=== PATIENT | female | born 1945 | race Caucasian/White ===

== ENCOUNTER 2017-09-09 12:29 | Emergency (ER) | payer MEDICARE, BC, OTHER ==
[~2017-09-09] VITALS: Ht 154.9 cm; Wt 69.0 kg
[~2017-09-09 12:29] MED LIST: CYCL-36 PO; FEMHRT 1/5 PO; MEDR4PAK3 PO; OXYC-360 PO; SERT50 PO; TOPR50TA PO
[2017-09-09 12:35] VITALS: BP 177/75; PULSE 81; RESP 18; TEMP 98.4; O2SAT 97
[2017-09-09] MEDS ORDERED: METO1TAB42 PO (12:48)
[2017-09-09] MEDS ORDERED: CYCL10TA PO (12:48)
[2017-09-09] MEDS ORDERED: ZOLO50TA PO (12:48)
[2017-09-09 12:49] VITALS: BP 177/75; PULSE 81; RESP 18; TEMP 98.4; O2SAT 97
--- NOTE | 2017-09-09 13:20 | PD ---
HPI Chief Complaint: Nosebleed Time Seen by Provider: 12:57 Travel History International Travel<30 days: No Contact w/Intl Traveler<30days: No Traveled to known affect area: No History of Present Illness HPI This is a 72 year old female who presents to the emergency department with epistaxis that started 30 minutes ago, constant, moderate severity, continuing in the emergency department. She gets 2-3 nosebleeds per year and sees Dr. Boykin for them. Pt. did recently recover from a cold and she has been taking mucinex DM and another cold medication. PFSH Past Medical History Narrative Medical anxiety depression palpitations Hx Anticoagulant Therapy: No Anxiety: Yes Heart Rhythm Problems: Yes Cardiovascular Problems: Yes (HTN) Diminished Hearing: Yes (hearing aide) Tetanus Vaccination: Unknown ?: Not Menopausal: Yes Past Surgical History Tonsillectomy: Yes Other Surgery: Yes (DEVIATED SEPTUM SX) Social History Alcohol Use: No Tobacco Use: No Substance Use: No Allergies-Medications (Allergen,Severity, Reaction): Coded Allergies: Sulfa (Sulfonamide Antibiotics) (Unverified Allergy, Severe, SWOLLEN TONGUE, 09/09/17) Reported Meds & Prescriptions Reported Meds & Active Scripts Active Reported Flexeril (Cyclobenzaprine HCl) 10 Mg Tab 10 Mg PO BID Zoloft (Sertraline HCl) 50 Mg Tab 50 Mg PO DAILY Metoprolol Succinate ER 24 HR (Metoprolol Succinate) 25 Mg Tab 25 Mg PO DAILY Review of Systems Except as stated in HPI: all other systems reviewed are Neg Physical Exam Narrative GENERAL:Well appearing, no acute distress SKIN: Focused skin assessment warm and dry. HEAD: Atraumatic. Normocephalic. EYES: Pupils equal and round. No injection or drainage. ENT: NECK: Trachea midline. CARDIOVASCULAR: Regular rate and rhythm. No murmur appreciated. RESPIRATORY: Clear to auscultation. Breath sounds equal bilaterally. GASTROINTESTINAL: Abdomen soft, non-tender, nondistended. MUSCULOSKELETAL: No obvious deformities. NEUROLOGICAL: Awake and alert. No obvious cranial nerve deficits. Moving all extremities. PSYCHIATRIC: Appropriate mood and affect; insight and judgment normal. Data Data Last Documented VS Vital Signs Date Time Temp Pulse Resp B/P (MAP) Pulse Ox O2 Delivery O2 Flow Rate FiO2 09/09/17 14:09 09/09/17 12:49 98.4 81 18 97 09/09/17 12:35 Room Air Orders Orders Oxymetazoline 0.05% Javid Bartow (Afrin 0.0 (09/09/17 13:30) Ed Discharge Order (09/09/17 14:12) [facility] Medical Decision Making Medical Screen Exam Complete: Yes Emergency Medical Condition: Yes Interpretation(s) Afebrile, no tachycardia, hypertensive Differential Diagnosis Anterior epistaxis, posterior epistaxis, anemia Narrative Course This is a 72-year-old female who presents to the emergency department with anterior epistaxis. She has a history of nosebleeds in the past. Here in the emergency department her bleeding subsided with pressure alone. I did place some Afrin in the nose. She continued to have resolution of bleeding. She was discharged home to follow up with Dr. Boykin. Diagnosis Primary Impression: Anterior epistaxis Patient Instructions: General Instructions Additional Instructions: If you have another nose bleed: - Sit forward at the waist, don't lie down or tilt your head back. - Pinch the soft area towards the bottom of your nose below the bone. - Squeeze your nose shut for ATLEAST 15 minutes. Use a clock and don't release pressure until time is up. If this fails try again for 30 minutes. If your nose continues to bleed, go to the emergency department. Return to the Emergency department if: You are having difficulty bleeding Your nose bleeds cause you to turn pale, or make you tired or confused If they won't stop after fifteen minutes of constant pressure If you have chest pain, shortness of breath, or other serious symptoms. Call 911 if you are bleeding a lot, have chest pain, or feel woozy. You can help prevent nose bleeds by getting a humidifier in your bedroom. Keeping the inside of your nose moist with bacitracin ointment applied with a cotton swab twice daily. Med/Other Pt SpecificInfo: No Change to Meds Disposition: 01 DISCHARGE HOME Condition: Stable Julissa Tadeo MD Sep 09, 2017 13:20
[2017-09-09] MEDS ORDERED: OXYMETAZOLINE HCL 0.05% 15 ML NASAL SPRAY NASAL ONE (13:30)
== END 2017-09-09 14:17 | disposition home or self-care (01) ==
LOC: PHED 12:29
DX: R04.0 Epistaxis (principal); I10 Essential (primary) hypertension
CPT/HCPCS: 99282

== ENCOUNTER 2018-04-08 14:24 | Emergency (ER) | payer MEDICARE, BC, OTHER ==
[~2018-04-08] VITALS: Ht 154.9 cm; Wt 69.0 kg
[~2018-04-08 14:24] MED LIST changes: -CYCL-36 PO; +CYCL10TA PO; -FEMHRT 1/5 PO; -MEDR4PAK3 PO; +METO1TAB42 PO; -OXYC-360 PO; -SERT50 PO; -TOPR50TA PO; +ZOLO50TA PO
[2018-04-08 14:28] VITALS: BP 223/98; PULSE 80; RESP 16; TEMP 97.8; O2SAT 97
[2018-04-08 14:50] VITALS: BP_SYST 167; BP_SYST 223; BP_DIAS 85; BP_DIAS 98; PULSE 80; RESP 16; TEMP 97.8; O2SAT 97
--- NOTE | 2018-04-08 14:50 | PD ---
HPI Chief Complaint: Nosebleed Time Seen by Provider: 14:50 Travel History International Travel<30 days: No Contact w/Intl Traveler<30days: No Traveled to known affect area: No History of Present Illness HPI 72-year-old female came to the emergency room with history nosebleed for past 2 hours. Patient says that she just coughed up a giant size clot. She is not sure which nostril is bleeding. Patient has history of epistaxis. She has been in the emergency room at least 2-3 times and has had nasal packing. She is not on any blood thinners. Her blood pressure was high in triage. Patient is not on any antihypertensives. Her is here with her. No history of trauma. [facility] Past Medical History Narrative Medical List of her past medical, surgical, social and family history is reviewed from the nursing note. Hx Anticoagulant Therapy: No Anxiety: Yes Heart Rhythm Problems: Yes (STATES NOT A. FIB BUT PALPITATIONS) Cardiovascular Problems: Yes (HTN) Diminished Hearing: Yes (hearing aide) Tetanus Vaccination: Unknown ?: Not Menopausal: Yes Past Surgical History Tonsillectomy: Yes Other Surgery: Yes (DEVIATED SEPTUM SX) Social History Alcohol Use: No Tobacco Use: No Substance Use: No Allergies-Medications (Allergen,Severity, Reaction): Coded Allergies: Sulfa (Sulfonamide Antibiotics) (Unverified Allergy, Severe, SWOLLEN TONGUE, 04/10/18) Comments List of her allergies reviewed from the nursing note. Reported Meds & Prescriptions Reported Meds & Active Scripts Active Amlodipine (Amlodipine Besylate) 2.5 Mg Tab 2.5 Mg PO DAILY Keflex (Cephalexin) 500 Mg Cap 500 Mg PO Q12H 3 Days Reported Flexeril (Cyclobenzaprine HCl) 10 Mg Tab 10 Mg PO BID Zoloft (Sertraline HCl) 50 Mg Tab 50 Mg PO DAILY Metoprolol Succinate ER 24 HR (Metoprolol Succinate) 25 Mg Tab 25 Mg PO DAILY Narrative Medication List of her home medications reviewed from the nursing note Review of Systems Except as stated in HPI: all other systems reviewed are Neg HENT: Positive: Nosebleed Physical Exam Narrative GENERAL: Awake, alert, anxious, mildest SKIN: Focused skin assessment warm/dry. HEAD: Atraumatic. Normocephalic. EYES: Pupils equal and round. No scleral icterus. No injection or drainage. ENT: No nasal bleeding or discharge. Mucous membranes pink and moist. Bilateral nostrils has some dried blood. Blood in the posterior pharynx. NECK: Trachea midline. No JVD. CARDIOVASCULAR: Regular rate and rhythm. No murmur appreciated. RESPIRATORY: No accessory muscle use. Clear to auscultation. Breath sounds equal bilaterally. GASTROINTESTINAL: Abdomen soft, non-tender, nondistended. Hepatic and splenic margins not palpable. MUSCULOSKELETAL: No obvious deformities. No clubbing. No cyanosis. No edema. NEUROLOGICAL: Awake and alert. No obvious cranial nerve deficits. Motor grossly within normal limits. Normal speech. PSYCHIATRIC: Appropriate mood and affect; insight and judgment normal. Data Data Last Documented VS Vital Signs Date Time Temp Pulse Resp B/P (MAP) Pulse Ox O2 Delivery O2 Flow Rate FiO2 04/08/18 16:49 04/08/18 15:59 74 16 95 Room Air 04/08/18 14:50 97.8 Orders Orders Phenylephrine 0.5% Javid Spr (Neosynephrin (04/08/18 15:15) Lidocaine 2% Jelly (Xylocaine 2% Jelly) (04/08/18 15:15) Ed Discharge Order (04/08/18 16:26) [facility] Medical Decision Making Medical Screen Exam Complete: Yes Emergency Medical Condition: Yes Medical Record Reviewed: Yes Differential Diagnosis Anterior epistaxis, posterior epistaxis Narrative Course 4:30 PM the nose was packed. Please refer to my procedure note. Patient tolerated the procedure well. I just went back and reassessed her and there was no blood in her pharynx. No blood anteriorly. I am comfortable discharging her home. Patient was given verbal instructions that she understood. She will go home on discharge instructions and prescription. Her blood pressure persistently remained on the higher side and have decided to start her on antihypertensive. She would be sent home on a prescription for amlodipine. Procedures Procedure Narrative NASAL PACKING: The right nare was anesthetized topically with [Pontocaine/ lidocaine] with [adrenaline/Javy- Synephrine]. The nare was packed with (Merocel sponge/Rapid rhino/Nasostat balloon). Adequate control of bleeding was obtained. The patient was observed without recurrence of bleeding. Patient tolerated procedure well. EKG Prior to Arrival: No Diagnosis Primary Impression: Anterior epistaxis Additional Impression: Hypertension Qualified Codes: I10 - Essential (primary) hypertension Referrals: Primary Care Physician 3 days Additional Instructions: Please return to the ER in 48 hours to get the nasal packing taken out. Sneeze with her mouth open as much as possible to prevent the packing coming out. Return earlier if there are any other issues like continuous bleeding or the packing accidentally coming out. Take the medication as per the prescription direction. Check your blood pressure twice a day. Follow-up with your primary care regarding the blood pressure as well. Med/Other Pt SpecificInfo: Prescription(s) given Scripts Amlodipine (Amlodipine) 2.5 Mg Tab 2.5 MG PO DAILY for Blood Pressure Management, #30 TAB 0 Refills Prov: Shawanda Crowe MD 04/08/18 Cephalexin (Keflex) 500 Mg Cap 500 MG PO Q12H for Infection for 3 Days, #6 CAP 0 Refills Prov: Shawanda Crowe MD 04/08/18 Disposition: 01 DISCHARGE HOME Condition: Stable Shawanda Crowe MD Apr 08, 2018 14:50
[2018-04-08] MEDS ORDERED: LIDOCAINE 2% JELLY 30 ML TUBE TOPICAL ONE (15:15)
[2018-04-08] MEDS ORDERED: PHENYLEPHRINE HCL 0.5% NASAL SPRAY 15 ML BTL NASAL ONE (15:15)
[2018-04-08 15:23] VITALS: BP 153/97; PULSE 73; RESP 16; O2SAT 95
[2018-04-08 15:59] VITALS: BP 169/90; PULSE 74; RESP 16; O2SAT 95
[2018-04-08] MEDS ORDERED: AMLO2.5T PO (16:26)
[2018-04-08] MEDS ORDERED: CEPH-460 PO (16:26)
== END 2018-04-08 16:49 | disposition home or self-care (01) ==
LOC: PHED 14:24
DX: R04.0 Epistaxis (principal); I10 Essential (primary) hypertension; F41.9 Anxiety disorder, unspecified
CPT/HCPCS: 30901

== ENCOUNTER 2018-04-10 15:32 | Emergency (ER) | payer MEDICARE, BC, OTHER ==
[~2018-04-10 15:32] MED LIST changes: +AMLO2.5T PO; +CEPH-460 PO
[2018-04-10 15:38] VITALS: BP 164/80; PULSE 79; RESP 16; TEMP 98.3; O2SAT 96
--- NOTE | 2018-04-10 17:20 | PD ---
HPI Chief Complaint: Business Continuity Specialist Problem Time Seen by Provider: 17:04 Travel History International Travel<30 days: No Contact w/Intl Traveler<30days: No Traveled to known affect area: No History of Present Illness HPI 32-year-old female presents emergency department for evaluation and removal of nasal packing was placed 2 days ago. Says that she has chronic nosebleeds and follows ear nose and throat. Says she is due to follow-up with them within the next couple of weeks. She denies any taste of blood or other discharge in the back of her throat. Says her pain is "pressure" in her right nostril with the packing is placed. Denies fevers or chills. She has no other complaints today. PFSH Past Medical History Hx Anticoagulant Therapy: No Anxiety: Yes Heart Rhythm Problems: Yes (STATES NOT A. FIB BUT PALPITATIONS) Cardiovascular Problems: Yes (INTERMITTANT HTN) Diminished Hearing: Yes (hearing aide) Influenza Vaccination: No ?: Not Menopausal: Yes Past Surgical History Tonsillectomy: Yes Other Surgery: Yes (DEVIATED SEPTUM SX) Social History Alcohol Use: No Tobacco Use: No Substance Use: No Allergies-Medications (Allergen,Severity, Reaction): Coded Allergies: Sulfa (Sulfonamide Antibiotics) (Unverified Allergy, Severe, SWOLLEN TONGUE, 04/10/18) Reported Meds & Prescriptions Reported Meds & Active Scripts Active Amlodipine (Amlodipine Besylate) 2.5 Mg Tab 2.5 Mg PO DAILY Keflex (Cephalexin) 500 Mg Cap 500 Mg PO Q12H 3 Days Reported Flexeril (Cyclobenzaprine HCl) 10 Mg Tab 10 Mg PO BID Zoloft (Sertraline HCl) 50 Mg Tab 50 Mg PO DAILY Metoprolol Succinate ER 24 HR (Metoprolol Succinate) 25 Mg Tab 25 Mg PO DAILY Review of Systems Except as stated in HPI: all other systems reviewed are Neg Physical Exam Narrative GENERAL: Well developed, well-nourished in no apparent distress resting comfortably in bed SKIN: Focused skin assessment warm/dry. HEAD: Atraumatic. Normocephalic. EYES: Pupils equal and round. No scleral icterus. No injection or drainage. ENT: Nasal packing in place without active bleeding. Once removed, no oozing of blood noticed. NECK: Trachea midline. No JVD. CARDIOVASCULAR: Regular rate and rhythm. No murmur appreciated. RESPIRATORY: No accessory muscle use. Clear to auscultation. Breath sounds equal bilaterally. MUSCULOSKELETAL: No obvious deformities. No clubbing. No cyanosis. No edema. NEUROLOGICAL: Awake and alert. No obvious cranial nerve deficits. Motor grossly within normal limits. Normal speech. PSYCHIATRIC: Appropriate mood and affect; insight and judgment normal. Data Data Last Documented VS Vital Signs Date Time Temp Pulse Resp B/P (MAP) Pulse Ox O2 Delivery O2 Flow Rate FiO2 04/10/18 15:38 98.3 79 16 164/80 (108) 96 MDM Medical Decision Making Medical Screen Exam Complete: Yes Emergency Medical Condition: Yes Differential Diagnosis Nasal packing removal, epistaxis, cellulitis Narrative Course 72-year-old female presents emergency department for removal of nasal packing that was placed 3 days ago. Says that she has had no complications as a result. She has pressure in the right nare but denies significant pain. Denies unusual taste of blood or other discharge in the back of her throat. Says she is due to follow-up with an associate research scientist within the next couple of weeks. The nasal packing was deflated and lubricant gel applied to the outer portion of the packing to assist with removal. The packing was removed and one motion without any obvious oozing of blood or nasal bleeding. She is advised to follow-up with ears and throat as discussed. Return to the ED for worsening symptoms. Diagnosis Primary Impression: Encounter for removal of nasal packing Referrals: Ear / Nose / Throat Specialist Additional Instructions: Follow-up with the associate research scientist as discussed. If you develop further bleeding, apply pressure to the naris for 5-10 minutes until the bleeding stops. Disposition: 01 DISCHARGE HOME Condition: Stable Tyesha Jaquez Apr 10, 2018 17:20
== END 2018-04-10 17:32 | disposition home or self-care (01) ==
LOC: PHEFT 15:32
DX: Z09 Encounter for follow-up examination after completed treatment for conditions other than malignant neoplasm (principal); R04.0 Epistaxis; I10 Essential (primary) hypertension; F41.9 Anxiety disorder, unspecified; Z79.899 Other long term (current) drug therapy; Z88.2 Allergy status to sulfonamides
CPT/HCPCS: 99281